=== PATIENT | female | born 1965 | race Caucasian/White ===

== ENCOUNTER 2021-12-12 09:30 | Day surgery (SDC) | payer OTHER ==
[2021-12-12] MEDS ORDERED: LIDOCAINE HCL 2% 100 MG/5 ML IJ ONE (09:31)
[2021-12-12] MEDS ORDERED: Decadron 4 MG INJ IV ONE (09:31)
[2021-12-12] MEDS ORDERED: Lactated Ringers 1,000 ML IV ONE (10:24)
[2021-12-12] MEDS ORDERED: DIPRIVAN 200 MG/20 ML IV ONE (11:21)
--- NOTE | 2021-12-12 12:33 | XRAY ---
Indication: Right C2-C5 MBB. Intraoperative fluoroscopy provided for 23 seconds. 2 digital spot image submitted for interpretation demonstrates posterior needle tips projecting over the expected right C3-C5 nerve roots. Correlate with intraoperative findings/report.
--- NOTE | 2021-12-12 13:05 | XRAY ---
23 seconds of fluoroscopy was used in surgery for a right C3-C5 MBB.
== END 2021-12-12 11:47 | disposition home or self-care (01) ==
LOC: SDC-PAIN 09:30
PROVIDERS: ATTEND Psychiatry & Neurology Pain Medicine
DX: M47.812 Spondylosis without myelopathy or radiculopathy, cervical region (principal); E11.9 Type 2 diabetes mellitus without complications; Z79.899 Other long term (current) drug therapy
CPT/HCPCS: 36415; 64490; 64491; 72040; 77002; 82947; 84702; J1100; J2704

== ENCOUNTER 2022-01-15 08:56 | Day surgery (SDC) | payer OTHER ==
[2022-01-15] MEDS ORDERED: Decadron 4 MG INJ IV ONE (08:57)
[2022-01-15] MEDS ORDERED: Marcaine Mpf 0.5% Vial 30 Ml IJ ONE (08:57)
[2022-01-15] MEDS ORDERED: DIPRIVAN 200 MG/20 ML IV ONE (09:53)
--- NOTE | 2022-01-15 12:24 | XRAY ---
Indication: Right C3-C5 MBB. Intraoperative fluoroscopy provided for 27 seconds. 2 digital spot image submitted for interpretation demonstrates posterior needle tips projecting over the expected right C3-C5 nerve roots. Correlate with intraoperative findings/report.
--- NOTE | 2022-01-15 12:27 | XRAY ---
27 seconds fluoroscopy time in surgery for right C3-C5 MBB.
== END 2022-01-15 10:07 | disposition home or self-care (01) ==
LOC: SDC-PAIN 08:56
PROVIDERS: ATTEND Psychiatry & Neurology Pain Medicine
DX: M47.812 Spondylosis without myelopathy or radiculopathy, cervical region (principal); E11.9 Type 2 diabetes mellitus without complications; Z79.899 Other long term (current) drug therapy
CPT/HCPCS: 36415; 64490; 64491; 72040; 77002; 82947; 84702; J1100; J2704